=== PATIENT | female | born 1960 | race Hispanic/Latino ===

== ENCOUNTER 2021-10-08 19:45 | Emergency (ER) | payer SELFPAY ==
[2021-10-08 20:27] LABS: Absolute Lymphocytes (CBC) 1.9 K/uL (0.7-4.9); Hematocrit 35.1 % (36.0-45.0); MCV 88.8 fL (80-100); MPV 6.6 fL (7.6-11.3); RBC Red Blood Cell Count 3.95 M/uL (3.86-4.86)
[2021-10-08 20:32] LABS: Potassium 3.5 mmol/L (3.5-5.1)
[2021-10-08 20:48] LABS: Protime INR 1.04
[2021-10-08] MEDS ORDERED: NA CHLORIDE 0.9% 1,000 ML ONE (21:04)
--- NOTE | 2021-10-08 23:10 | EDPHYS ---
Physician Documentation [facility] Name: Amber Subramanian Age: 61 yrs Sex: Female : 1960 Arrival Date: 10/08/2021 Time: 19:46 Bed 3 Private MD: ED Physician Angelito Frias HPI: 10/08 19:59 This 61 yrs old Female presents to ER via Wheelchair with complaints of Snake rn bite. 19:59 The patient was bitten on the left lateral ankle, by a snake, in an unprovoked manner, rn at home. Onset: The symptoms/episode began/occurred 30 minute(s) ago. Animal information: Patient/Caregiver unable to describe the snake. Secondary to the bite the patient reports an abrasion, Associated signs and symptoms: Pertinent negatives: erythema at site, fever, fluctuance, loss of consciousness, motor deficit, numbness distal to wound, pain at site, swelling at site, tenderness. Severity of symptoms: At their worst the symptoms were very mild, in the emergency department the symptoms are unchanged. The patient has not experienced similar symptoms in the past. The patient has not recently seen a physician. Pt reports in back yard, bitten by snake, didn't get a good look at it. Reports had a little pain at the time of bite but now doesn't hurt. No swelling. No chest pain/sob/abd pain/vomiting/diarrhea/numbness/tingling. Reports feels normal. . Historical: - Allergies: 19:58 No Known Allergies; ll3 - Immunization history:: Client reports receiving the 2nd dose of the Covid vaccine. - Social history:: Smoking status: Patient denies any tobacco usage or history of. - Family history:: not pertinent. - Hospitalizations: : No recent hospitalization is reported. ROS: 19:59 Constitutional: Negative for fever, chills, and weight loss, Eyes: Negative for injury, rn pain, redness, and discharge, Neck: Negative for injury, pain, and swelling, Cardiovascular: Negative for chest pain, palpitations, and edema, Respiratory: Negative for shortness of breath, cough, wheezing, and pleuritic chest pain, Abdomen/GI: Negative for abdominal pain, nausea, vomiting, diarrhea, and constipation, Back: Negative for injury and pain, MS/Extremity: + snake bite to left lateral ankle Skin: + puncture wound to left lateral ankle above lateral malleolus. Neuro: Negative for headache, weakness, numbness, tingling, and seizure. Exam: 19:59 Constitutional: This is a well developed, well nourished patient who is awake, alert, rn and in no acute distress. Head/Face: Normocephalic, atraumatic. Cardiovascular: Regular rate and rhythm. No pulse deficits. Respiratory: No increased work of breathing, no retractions or nasal flaring. Skin: Warm, dry, no erythema or ecchymosis at site of bite. Definitely 1 puncture wound, very superficial, no surrounding swelling or even tenderness. + small linear abrasion closer to achilles tendon of same ankle. MS/ Extremity: Pulses equal, no cyanosis. Neurovascular intact. Full, normal range of motion. Equal circumference. Neuro: Awake and alert, GCS 15, oriented to person, place, time, and situation. Cranial nerves II-XII grossly intact. Motor strength 5/5 in all extremities. Sensory grossly intact. Cerebellar exam normal. Normal gait. 21:50 ECG was reviewed by the Attending Physician. rn Vital Signs: 19:51 BP 118 / 80; Pulse 79; Resp 16; Temp 97.5(TE); Pulse Ox 98% on R/A; Weight 70 kg; ll3 Height 5 ft. 2 in. (157.48 cm); Pain 0/10; 21:01 BP 122 / 77; Pulse 87; Resp 20; Pulse Ox 96% on R/A; jb4 22:00 BP 128 / 70; Pulse 62; Resp 16; Pulse Ox 99% on R/A; jb4 23:31 BP 138 / 83; Pulse 74; Resp 16; Pulse Ox 98% on R/A; jb4 19:51 Body Mass Index 28.23 (70.00 kg, 157.48 cm) ll3 MDM: 19:48 Patient medically screened. rn 20:48 ED course: NO clinical change. Still no pain or systemic symptoms. NO swelling engineer geophysical laboratory ecchymosis at site. . 23:05 Differential diagnosis: dry bite, snake bite. Data reviewed: vital signs, nurses notes, arc furnace operator test result(s), and as a result, I will discharge patient. Counseling: I had a detailed discussion with the patient and/or guardian regarding: the historical points, exam findings, and any diagnostic results supporting the discharge/admit diagnosis, lab results, the need for outpatient follow up, to return to the emergency department if symptoms worsen or persist or if there are any questions or concerns that arise at home. Response to treatment: the patient's symptoms have resolved after treatment, and as a result, I will discharge patient. Special discussion: I discussed with the patient/guardian in detail that at this point there is no indication for admission to the hospital. It is understood, however, that if the symptoms persist or worsen the patient needs to return immediately for re-evaluation. ED course: Pt still asymptomatic, no changes of skin or exam, high likelihood that snake either didn't get good bite since only 1 puncture wound and linear abrasion seen, or dry bite. No acute snake bite related abnormalities in blood. Patient would like to go home. Will dc home with return precautions. . 10/08 19:59 Order name: CBC with Diff; Complete Time: 20:53 rn 10/08 19:59 Order name: Basic Metabolic Panel; Complete Time: 20:53 rn 10/08 19:59 Order name: Protime (+inr); Complete Time: 20:53 rn 10/08 19:59 Order name: Ptt, Activated; Complete Time: 20:53 rn 10/08 19:59 Order name: Fibrinogen; Complete Time: 20:53 rn 10/08 19:59 Order name: D-Dimer; Complete Time: 20:53 rn 10/08 19:59 Order name: IV Start; Complete Time: 20:15 rn 10/08 19:59 Order name: EKG; Complete Time: 20:00 rn 10/08 19:59 Order name: EKG - Nurse/Tech; Complete Time: 20:23 rn EC:50 Rate is 67 beats/min. Rhythm is regular. QRS [place] is Normal. [place] interval is normal. QRS rn interval is normal. QT interval is normal. No Q waves. T waves are Normal. No ST changes noted. Clinical impression: Normal ECG. Interpreted by me. Reviewed by me. Administered Medications: 21:00 Drug: NS 0.9% 1000 ml Route: IV; Rate: 1000 ml; Site: right antecubital; jb4 22:00 Follow up: Response: No adverse reaction; IV Status: Completed infusion; IV Intake: jb4 1000ml 23:30 Drug: Tetanus Toxoid,Adsorbed 0.5 ml {[employer]. Exp: 07/06/2023. Lot jb4 #: [id number]. } Route: IM; Site: right deltoid; 23:33 Follow up: Response: Medication administered at discharge. jb4 Disposition Summary: 10/08/21 23:09 Discharge Ordered Location: Home rn Problem: new rn Symptoms: have improved rn Condition: Stable rn Diagnosis - Snake bite to left leg, without signs of envenomation rn Followup: rn - With: Private Physician - When: As needed - Reason: Recheck today's complaints, Re-evaluation by your physician Discharge Instructions: - Discharge Summary Sheet rn - Snake Bite rn Forms: - Medication Reconciliation Form rn - Thank You Letter rn - Antibiotic rn procedure - Prescription Opioid Use rn Signatures: Dispatcher [employer] EDAngelito Munoz MD MD rn Bryson, James RN RN jb4 Bridgette Cook, RN RN ll3
--- NOTE | 2021-10-08 23:10 | ER ---
Nurse's Notes [facility] Name: Amber Subramanian Age: 61 yrs Sex: Female : 1960 Arrival Date: 10/08/2021 Time: 19:46 Bed 3 Private MD: Diagnosis: Snake bite to left leg, without signs of envenomation Presentation: 10/08 19:51 Chief complaint: Patient states: I felt a pain on my ankle and then saw a snake on the ll3 ground, does not remember what the snake looked like, states bite happened at 1925. Coronavirus screen: Vaccine status: Patient reports receiving the 2nd dose of the covid vaccine. At this time, the client does not indicate any symptoms associated with coronavirus-19. Ebola Screen: No symptoms or risks identified at this time. Initial Sepsis Screen: Does the patient meet any 2 criteria? No. Patient's initial sepsis screen is negative. Does the patient have a suspected source of infection? No. Patient's initial sepsis screen is negative. Risk Assessment: Do you want to hurt yourself or someone else? Patient reports no desire to harm self or others. Onset of symptoms was October 08, 2021 at 19:25. 19:51 Method Of Arrival: Wheelchair ll3 19:51 Acuity: HOWARD 3 ll3 Historical: - Allergies: 19:58 No Known Allergies; ll3 - Immunization history:: Client reports receiving the 2nd dose of the Covid vaccine. - Social history:: Smoking status: Patient denies any tobacco usage or history of. - Family history:: not pertinent. - Hospitalizations: : No recent hospitalization is reported. Screenin:10 Abuse screen: Denies threats or abuse. Nutritional screening: No deficits noted. jb4 Tuberculosis screening: No symptoms or risk factors identified. Fall Risk None identified. Assessment: 20:10 General: Appears in no apparent distress. comfortable, Behavior is calm, cooperative, jb4 appropriate for age, Pt denies pain, swelling, or weakness to affected extremity where snake had bitten.. Pain: Denies pain. Neuro: Level of Consciousness is awake, alert, obeys commands, Oriented to person, place, time, situation. Cardiovascular: Patient's skin is warm and dry. Respiratory: Airway is patent Respiratory effort is even, unlabored, Respiratory pattern is regular, symmetrical. Derm: Skin Puncture noted to the left lower leg Skin is pink, warm \T\ dry. Musculoskeletal: Circulation, motion, and sensation intact. Range of motion: intact in all extremities. Injury Description: Puncture sustained to lateral aspect of left calf is superficial. 20:53 Reassessment: Patient appears in no apparent distress at this time. Patient and/or jb4 family updated on plan of care and expected duration. Pain level reassessed. Patient is alert, oriented x 3, equal unlabored respirations, skin warm/dry/pink. No swelling noted to affected extremity. Patient denies pain at this time. 22:00 Reassessment: Patient appears in no apparent distress at this time. Patient and/or jb4 family updated on plan of care and expected duration. Pain level reassessed. Patient is alert, oriented x 3, equal unlabored respirations, skin warm/dry/pink. No swelling noted. Patient denies pain at this time. 23:31 Reassessment: Patient appears in no apparent distress at this time. Patient and/or jb4 family updated on plan of care and expected duration. Pain level reassessed. Patient is alert, oriented x 3, equal unlabored respirations, skin warm/dry/pink. No swelling noted to affected site. Vital Signs: 19:51 BP 118 / 80; Pulse 79; Resp 16; Temp 97.5(TE); Pulse Ox 98% on R/A; Weight 70 kg; ll3 Height 5 ft. 2 in. (157.48 cm); Pain 0/10; 21:01 BP 122 / 77; Pulse 87; Resp 20; Pulse Ox 96% on R/A; jb4 22:00 BP 128 / 70; Pulse 62; Resp 16; Pulse Ox 99% on R/A; jb4 23:31 BP 138 / 83; Pulse 74; Resp 16; Pulse Ox 98% on R/A; jb4 19:51 Body Mass Index 28.23 (70.00 kg, 157.48 cm) ll3 ED Course: 19:46 Patient arrived in ED. bp1 19:48 Angelito Frias MD is Attending Physician. rn 19:58 Jyoti Contreras, MALIHA is Primary Nurse. kd3 19:58 Triage completed. ll3 19:58 Arm band placed on. ll3 20:14 Fibrinogen Sent. jb4 20:14 D-Dimer Sent. jb4 20:14 Protime (+inr) Sent. jb4 20:15 Basic Metabolic Panel Sent. jb4 20:15 CBC with Diff Sent. jb4 20:15 Ptt, Activated Sent. jb4 20:50 Notified ED physician of a critical lab result(s). DDimer [address] Dr Frias notified. bb 23:31 No provider procedures requiring assistance completed. IV discontinued, intact, jb4 bleeding controlled, No redness/swelling at site. Pressure dressing applied. Administered Medications: 21:00 Drug: NS 0.9% 1000 ml Route: IV; Rate: 1000 ml; Site: right antecubital; jb4 22:00 Follow up: Response: No adverse reaction; IV Status: Completed infusion; IV Intake: jb4 1000ml 23:30 Drug: Tetanus Toxoid,Adsorbed 0.5 ml {Fire Fighting Equipment Specialist: [employer]. Exp: 07/06/2023. Lot jb4 #: [id number]. } Route: IM; Site: right deltoid; 23:33 Follow up: Response: Medication administered at discharge. jb4 Medication: 23:31 Vaccine Information Statement (VIS) provided today. Questions and/or concerns jb4 addressed. VIS edition date: October 05, 2020. Intake: 22:00 IV: 1000ml; Total: 1000ml. jb4 Outcome: 23:09 Discharge ordered by . rn 23:31 Discharged to home ambulatory. jb4 23:31 Condition: stable 23:31 Discharge instructions given to patient, Instructed on discharge instructions, follow up and referral plans. Demonstrated understanding of instructions, follow-up care. 23:34 Patient left the ED. jb4 Signatures: Virgie Duffy RN Angelito Moreira MD MD rn Bryson, James RN RN jb4 Iesha Mosqueda Lynsea RN RN ll3 Jyoti Contreras RN RN kd3 Corrections: (The following items were deleted from the chart) 23:32 20:26 VIS not applicable for this client. jb4 jb4
[2021-10-08] MEDS ORDERED: TETANUS & DIPHTHERIA TOX,ADULT 0.5 ML VIAL ONE (23:32)
[2021-10-09 01:11] VITALS: TEMP 97.5
[2021-10-09 01:17] VITALS: BP 138/83; O2SAT 98
--- NOTE | 2021-10-09 07:53 | EKG ---
Test Date: 2021-10-08 Test Time: 20:22:25 [employer]: MALINI MEASUREMENT RESULTS: Intervals: Rate: 67 MA: 160 QRSD: 82 QT: 428 QTc: 452 [place]: P: 62 MA: 160 QRS: 41 T: 49 INTERPRETIVE STATEMENTS: Normal sinus rhythm Normal ECG No previous ECG available for comparison Electronically Signed On 10-09-21 07:52:26 CDT by Nam Gipson
== END 2021-10-08 23:34 | disposition home or self-care (01) ==
LOC: ER 19:45
DX: S91.052A Open bite, left ankle, initial encounter (principal); T63.001A Toxic effect of unspecified snake venom, accidental (unintentional), initial encounter; Z23 Encounter for immunization
CPT/HCPCS: 36415; 80048; 85025; 85379; 85384; 85610; 85730; 90471; 90714; 93005; 96360; 99283; J7030